=== PATIENT | male | born 1950 | race African-American/Black ===

== ENCOUNTER 2021-12-27 22:35 | Emergency (ER) | payer OTHER, MEDICARE ==
[2021-12-27] MEDS ORDERED: Sodium Chloride 0.9% 1,000 ML IV SCH (23:00)
[2021-12-27 23:28] LABS: ESTIMATED GFR 59 mL/min (>60)
[2021-12-28] MEDS ORDERED: Potassium Chloride 20 MEQ Tab.ER PO ONE (00:39)
== END 2021-12-28 01:39 | disposition home or self-care (01) ==
LOC: JP.ED 22:35
DX: R55 Syncope and collapse (principal); E86.0 Dehydration; Z79.899 Other long term (current) drug therapy
CPT/HCPCS: 36415; 80053; 80307; 84484; 85025; 93005; 96360; 99284; A9270; J7030